=== PATIENT | female | born 1995 | race African-American/Black ===

== ENCOUNTER 2018-01-29 10:56 | Emergency (ER) | payer OTHER ==
[~2018-01-29 10:56] MED LIST: GUAN2ER OR; MIRT7.5T10 PO; SERT-129 OR
[2018-01-29 11:04] VITALS: BP_SYST 112; BP_SYST 118; BP_DIAS 55; BP_DIAS 71; PULSE 80; PULSE 89; RESP 17; TEMP 98.3; O2SAT 98; O2SAT 99
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
--- NOTE | 2018-01-29 15:40 | EKG ---
Date Performed: 01/29/2018 Time Performed: 11:28:40 PTAGE: 22 years EKG: Sinus rhythm NORMAL ECG NO PREVIOUS TRACING DOCTOR: Daniel Correa Interpretating Date/Time 01/29/2018 15:38:32
--- NOTE | 2018-01-29 16:22 | PD ---
Data Data Last Documented VS Vital Signs Date Time Temp Pulse Resp B/P (MAP) Pulse Ox O2 Delivery O2 Flow Rate FiO2 01/29/18 11:04 98.3 89 17 118/71 (87) 99 Orders Orders Electrocardiogram (01/29/18 ) Chest, Single Ap (01/29/18 ) Ed Discharge Order (01/29/18 12:23) MDM Supervised Visit with [email or web address]: Yes Narrative Course The history, exam, and medical decision-making in the associated midlevel provider note were completed with my assistance. I reviewed and agree with the findings presented. I attest that I had a [id number] encounter with the patient on the same day, and personally performed and documented my assessment and findings in the medical record. *My assessment and Findings: This is a 22-year-old female who presents to the emergency department with atypical chest pain that has been going on for 3 months. EKG is nonischemic and reassuring and her chest x-ray is unremarkable. She has no risk factors for coronary artery disease and I think given her age her chest pain more likely reflects pleurisy. I think she can safely be discharged home and follow-up as an outpatient with the primary care physician. Diagnosis Primary Impression: Atypical chest pain Referrals: [facility] Primary Care Physician Patient Instructions: General Instructions, Chest Pain (ED) Departure Forms: Tests/Procedures Additional Instruction: Follow-up with your primary doctor or at the [facility] clinic Return to emergency department for any new or worsening symptoms Scripts No Active Prescriptions or Reported Meds Disposition: 01 DISCHARGE HOME Condition: Stable Eusebia Joshi MD Jan 29, 2018 16:22
== END 2018-01-29 13:26 | disposition home or self-care (01) ==
LOC: NEPD 10:56
DX: R07.89 Other chest pain (principal)
CPT/HCPCS: 71045; 93005